=== PATIENT | male | born 2000 | race American Indian/Alaskan Native ===

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

== ENCOUNTER 2021-12-29 14:02 | Emergency (ER) | payer MEDICAID, OTHER ==
[2021-12-29] MEDS ORDERED: Ibuprofen 600 MG Tab PO ONE ×2 (14:03→14:49)
[2021-12-29 14:20] VITALS: BP 140/88; PULSE 72
[2021-12-29] MEDS ORDERED: Ibuprofen 600 MG Tab ONE (14:58)
== END 2021-12-29 15:02 | disposition home or self-care (01) ==
LOC: DL.ED 14:02
DX: G89.29 Other chronic pain (principal); M25.561 Pain in right knee
CPT/HCPCS: 73562-RT; 99282; 99283-25; A9270-GY

== ENCOUNTER 2023-10-13 23:09 | Emergency (ER) | payer MEDICAID, OTHER ==
[2023-10-13 23:20] VITALS: BP 138/80; PULSE 83
[2023-10-13] MEDS ORDERED: Ketorolac 30 MG/ML SDV IM ONE (23:24)
[2023-10-13] MEDS ORDERED: Take Home: Lidocaine 2% Viscous Solution 15 ML UD, 2 Cup Pack PO ONE (23:25)
== END 2023-10-13 23:35 | disposition home or self-care (01) ==
LOC: DL.ED 23:09
DX: K08.89 Other specified disorders of teeth and supporting structures (principal); F17.210 Nicotine dependence, cigarettes, uncomplicated
CPT/HCPCS: 96372; 99282; 99283; A9270; J1885

== ENCOUNTER 2023-10-15 03:39 | Emergency (ER) | payer SELFPAY ==
[2023-10-15] MEDS ORDERED: Acetaminophen 325 MG Tab PO ONE (03:40)
[2023-10-15 03:59] VITALS: BP 154/106; PULSE 103
[2023-10-15] MEDS ORDERED: Ketorolac 30 MG/ML SDV IM ONE (04:08)
[2023-10-15] MEDS ORDERED: cefTRIAXone 1 GM, Lidocaine 1% 2.1 ML IM ONE ×2 (04:08)
[2023-10-15] MEDS ORDERED: Acetaminophen 325 MG Tab ONE (04:25)
== END 2023-10-15 04:40 | disposition home or self-care (01) ==
LOC: DL.ED 03:39
DX: K08.89 Other specified disorders of teeth and supporting structures (principal)
CPT/HCPCS: 96372; 99282; A9270-GY; J0696; J1885; J3490